=== PATIENT | male | born 1975 | race Caucasian/White ===

== ENCOUNTER 2018-07-20 19:54 | Emergency (ER) | payer OTHER ==
[~2018-07-20] VITALS: Ht 177.8 cm; Wt 86.2 kg
[~2018-07-20 19:54] MED LIST: AMOX1TAB5 PO; BICARSIM FORTE125 MG PO; BUCALSEP SPRAY30 ML MM; LEVSIN/SL0.125 MG SL; TOBRADEX EYE DR10 ML OP
[2018-07-20] MEDS ORDERED: LOSARTAN POTASS50 MG PO (20:02)
== END 2018-07-21 00:13 | disposition home or self-care (01) ==
LOC: ER 19:54
DX: B34.9 Viral infection, unspecified (principal); R10.84 Generalized abdominal pain

== ENCOUNTER 2022-03-01 09:07 | Emergency (ER) | payer OTHER ==
[~2022-03-01] VITALS: Ht 177.8 cm; Wt 86.2 kg
[~2022-03-01 09:07] MED LIST changes: +LOSARTAN POTASS50 MG PO
[2022-03-01] MEDS ORDERED: PREVACID30 MG PO (09:25)
== END 2022-03-01 13:35 | disposition left against medical advice (07) ==
LOC: ER 09:07
DX: M54.9 Dorsalgia, unspecified (principal); M51.36 Other intervertebral disc degeneration, lumbar region